=== PATIENT | male | born 1995 | race Caucasian/White ===

== ENCOUNTER 2023-01-07 19:56 | Emergency (ER) | payer OTHER ==
[2023-01-07 20:08] VITALS: BP 140/84; PULSE 70; RESP 18; TEMP 98; BMI 38.9
[2023-01-07 20:43] LABS: BASO % 0.8 % (0-2.0); EOS % 3.9 % (0-4.5); HEMATOCRIT 43.5 % (35.4-49); MCH 29.1 pg (25.7-33.7); MCHC 34.5 g/dl (32.0-35.9); MEAN CELL VOLUME 84.4 fl (80-96); MEAN PLT VOLUME 8.5 fl (7.5-11.1); MONO % 7.5 % (3.8-10.2); NEUT % 56.8 % (42.8-82.8); PLATELET COUNT 350 10^3/uL (134-434); RBC 5.16 M/mm3 (4.00-5.60); RDW 13.2 % (11.9-15.9); WHITE BLOOD COUNT 7.9 K/mm3 (4.0-10.0)
[2023-01-07 21:01] LABS: POTASSIUM 4.3 mmol/L (3.5-5.1)
[2023-01-07 21:05] LABS: ALBUMIN 4.4 g/dl (3.4-5.0); BLOOD UREA NITROGEN 13.4 mg/dL (7-18); CALCIUM 9.6 mg/dL (8.5-10.1)
[2023-01-07 21:10] LABS: BILIRUBIN,TOTAL 0.5 mg/dL (0.2-1); TOT PROT 8.1 g/dl (6.4-8.2)
[2023-01-07 22:00] LABS: HIV INTERPRETATION NEGATIVE (NEGATIVE)
== END 2023-01-07 22:48 | disposition home or self-care (01) ==
LOC: JERFT 19:56 → JER 19:56 → JERFT 22:48
DX: Z20.2 Contact with and (suspected) exposure to infections with a predominantly sexual mode of transmission (principal)
CPT/HCPCS: 36415; 80053; 85025; 86780; 87389; 87491; 87591; 99283-25

== ENCOUNTER 2023-01-22 17:35 | Emergency (ER) | payer OTHER ==
[2023-01-22] MEDS ORDERED: KETOROLAC TROMETHAMINE 30 MG/1 ML VIAL IM ONE (17:37)
[2023-01-22] MEDS ORDERED: KETOROLAC TROMETHAMINE 30 MG/1 ML VIAL ONE (17:45)
[2023-01-22 18:50] VITALS: BP 149/83; PULSE 89; RESP 18; TEMP 99.1; BMI 38.9
== END 2023-01-22 18:50 | disposition home or self-care (01) ==
LOC: JER 17:35 → JERFT 17:35
PROC: 3E0233Z Introduction of Anti-inflammatory into Muscle, Percutaneous Approach (ICD-10-PCS; principal; 2023-01-22)
DX: M79.671 Pain in right foot (principal); R22.41 Localized swelling, mass and lump, right lower limb
CPT/HCPCS: 73630-TC-RT-FY; 99284-25